=== PATIENT | female | born 1945 | race Caucasian/White ===

== ENCOUNTER 2016-03-17 12:33 | Day surgery (SDC) | payer MEDICARE, BC ==
[2016-03-17] MEDS ORDERED: MIDAZOLAM HCL 2MG/2ML VIAL IV ONE (14:00)
[2016-03-17] MEDS ORDERED: LIDOCAINE 2% MDV (20MG/ML) 20ML VIAL IV ONE (14:00)
[2016-03-17] MEDS ORDERED: PROPOFOL 10 MG/ML VIAL IV ONE (14:00)
--- NOTE | 2016-03-22 08:17 | Operative Note ---
DATE OF SURGERY: 03/17/2016. REFERRING PHYSICIAN: Gregory Brown D.O. PROCEDURE: Colonoscopy to the cecum with cold biopsy forceps polypectomy. INDICATION: A history of adenomatous polyps. The patient also has a family history of colon cancer (mother). She returns at this time for surveillance. ANESTHESIA: Intravenous sedation was administered by the Department of Anesthesiology and included Diprivan titrated to effect. PROCEDURE: Following informed consent from this alert individual, including a discussion of the risks and benefits of the procedure and an opportunity for the patient to ask questions, the patient was in the left lateral decubitus position. A digital rectal examination was performed. No abnormalities were noted. Following this, the Olympus PCF-180 video colonoscope was inserted into the rectum without resistance. The rectal mucosa had a normal appearance with normal folds and distensibility. The colonoscope was advanced up through the colon to the level of the cecum without much difficulty. Throughout the bowel, the mucosa appeared normal, folds were normal, and the bowel was fairly distensible. The cecum was defined by noting the appendiceal orifice and ileocecal valve. The colon preparation was good with some washing and suctioning. From the base of the cecum, the colonoscope was then withdrawn back through the bowel re-examining the mucosa upon withdrawal. There were a few scattered diverticula noted in the sigmoid colon and in the descending colon. Also noted in the sigmoid colon was a diminutive 3.0 mm polyp which was removed with biopsy forceps. No other mucosal changes were appreciated upon withdrawal. Retroflexion in the rectum was endoscopically normal. The instrument was straightened and withdrawn. The patient tolerated the procedure well and was returned to the recovery area in stable condition. IMPRESSION: 1. A 3.0 mm polyp removed from the sigmoid colon with biopsy forceps. 2. Diverticulosis. RECOMMENDATIONS: The patient was advised that further recommendations will be forthcoming pending the results of the pathology obtained today. Most likely follow up will be with surveillance colonoscopy in five years' time, again pending pathology. YANI DOHERTY D.O. Date Time JOB NUMBER: [id number] cc: Lamont Johnson
== END 2016-03-17 14:30 | disposition home or self-care (01) ==
LOC: HOP 12:33
PROVIDERS: ATTEND Internal Medicine Gastroenterology
DX: Z09 Encounter for follow-up examination after completed treatment for conditions other than malignant neoplasm (principal); Z80.0 Family history of malignant neoplasm of digestive organs; K63.5 Polyp of colon; K57.30 Diverticulosis of large intestine without perforation or abscess without bleeding; E78.00 Pure hypercholesterolemia, unspecified; E11.9 Type 2 diabetes mellitus without complications; Z79.84 Long term (current) use of oral hypoglycemic drugs; I25.10 Atherosclerotic heart disease of native coronary artery without angina pectoris

== ENCOUNTER 2016-03-18 15:14 | Emergency (ER) | payer MEDICARE, BC ==
[2016-03-18] MEDS ORDERED: NITROGLYCERIN 0.4MG SL TABLET #25 BTL SL ONE (16:02)
--- NOTE | 2016-03-18 16:06 | Emergency Department Record ---
History of Present Illness - General Stated Complaint: PAJIN IN LEFT ARM Time Seen by Provider: 03/18/16 16:01 Source: Patient Mode of Arrival: Ambulatory Limitations: No limitations - History of Present Illness Initial Comments: 70 yo female presents to ED with a CC of left arm pain that began approximately 5 days ago. Patient reports stopping her plavix 5 days ago for colonoscopy. Patient reports a history of DM, PVD, denies previous heart problems. Patient reports that her arm pain is not reproducible, but worsens with "moving around the house and cleaning with her right arm". MD Complaint: Other Onset/Timin -: Days(s) Onset: During exertion Pain Location: Other (LUE) Severity: Moderate Severity scale (1-10): 6 Quality: Aching Consistency: Intermittent Improves With: Nothing Worsens With: Exertion - Related Data Home Medications Medication Instructions Recorded Confirmed Last Taken Atorvastatin Calcium [Lipitor] 40 mg PO DAILY 11/07/13 11/27/14 11/27/14 Bupropion HCl [Wellbutrin] 300 mg PO BID 11/07/13 11/27/14 11/27/14 Citalopram Hydrobromide [Celexa] 40 mg PO DAILY 11/07/13 11/27/14 11/27/14 Metformin HCl [Metformin HCl] 2 tab PO BID 11/07/13 11/27/14 11/27/14 Clopidogrel Bisulfate [Plavix] 75 mg PO DAILY 11/27/14 11/27/14 11/27/14 Abernathy-3/Dha/Epa/Fish Oil [Fish Oil] 500 mg PO DAILY 11/27/14 11/27/14 11/27/14 Atorvastatin Calcium [Lipitor] 40 mg PO DAILY 03/18/16 03/18/16 Unknown Bisacodyl [Dulcolax] 5 mg PO NOW 03/18/16 03/18/16 Unknown Pantoprazole Sodium [Protonix] 1 tab PO DAILY 03/18/16 03/18/16 Unknown Previous Rx's Medication Instructions Recorded Albuterol Sulfate [Proair Hfa] 1 - 2 puff IH .EVERY 4-6 HOURS PRN 06/16/14 #1 inhaler Allergies Allergy/AdvReac Type Severity Reaction Status Date / Time aspirin Allergy Intermediate SWELLING Verified 02/28/16 13:54 OF THE FACE NSAIDS (Non-Steroidal Allergy Intermediate SWELLING Verified 02/28/16 13:54 Anti-Inflamma OF THE FACE Salicylates * Allergy Intermediate SWELLING Verified 02/28/16 13:54 OF THE FACE amoxicillin Allergy Unknown VOMITING Verified 11/27/14 20:33 ezetimibe [From Zetia] AdvReac Mild NAUSEA Verified 02/28/16 13:25 Sulfa (Sulfonamide AdvReac Mild HEADACHE Verified 02/28/16 13:54 Antibiotics) sulfamethoxazole AdvReac Mild HEADACHE Verified 02/28/16 13:54 [From Bactrim] trimethoprim [From Bactrim] AdvReac Mild HEADACHE Verified 02/28/16 13:54 Review of Systems Constitutional: Denies: Chills, Fever, Malaise, Night sweats Eyes: Denies: Eye discharge, Eye pain ENT: Denies: Congestion, Ear pain, Epistaxis Respiratory: Denies: Cough, Dyspnea Cardiovascular: Denies: Chest pain, Dyspnea on exertion, Palpitations Endocrine: Denies: Fatigue, Heat or cold intolerance Gastrointestinal: Denies: Abdominal pain, Nausea, Vomiting Genitourinary: Denies: Dysuria, Frequency, Hematuria, Incontinence Musculoskeletal: Reports: Arthralgia. Denies: Back pain, Gout, Joint swelling Skin: Denies: Bruising, Change in color Neurological: Denies: Abnormal gait, Confusion, Headache, Seizure Psychiatric: Denies: Anxiety Hematological/Lymphatic: Denies: Anemia, Blood Clots Past Medical History - SOCIAL HISTORY Smoking Status: Never smoker - RESPIRATORY Hx Respiratory Disorders: Yes Hx Bronchitis: Yes (not recently) Comment:: sinus issues cannot breathe out of the right side of nose - CARDIOVASCULAR Hx Cardio Disorders: Yes Hx Cardiac Cath: Yes (20+ years ago neg) Hx Chest Pain: Yes (last time 6 weeks, cardiac workup neg) Hx Coronary Artery Disease: Yes Comment:: High cholestrol - NEURO Hx Neuro Disorders: Yes Hx of Migraines: Yes Hx TIA: Yes (April or May/2015) - GI Hx GI Disorders: Yes Hx Reflux: Yes (worsened) Hx Hiatal Hernia: Yes Hx Nausea/Vomiting: Yes (improved recently) Hx of Polyps: Yes Comment:: difficulty in swallowing - Hx Genitourinary Disorders: Yes Hx Kidney Stones: Yes - ENDOCRINE Hx Endocrine Disorders: Yes Hx Thyroid Disease: Yes (Hx of hypo) - MUSCULOSKELETAL Hx Musculoskeletal Disorders: Yes - PSYCH Hx Psych Problems: Yes Hx Depression: Yes - HEMATOLOGY/ONCOLOGY Hx Hematology/Oncology Disorders: Yes Hx Anemia: Yes Family Medical History Hx Cancer: Mother Hx Diabetes: Father, Mother Hx Heart Disease: Father Physical Exam - General General Appearance: Alert, Oriented x3, Cooperative, Moderate distress Limitations: No limitations - Head Head exam: Atraumatic, Normocephalic, Normal inspection Head exam detail: negative: Abrasion, Contusion, Martinez's sign, General tenderness, Hematoma, Laceration - Eye Eye exam: Normal appearance. negative: Conjunctival injection, Periorbital swelling, Periorbital tenderness, Scleral icterus - ENT Ear exam: negative: Auricular hematoma, Auricular trauma Nasal Exam: negative: Active bleeding, Discharge, Dried blood, Foreign body Mouth exam: negative: Drooling, Laceration, Muffled voice, Tongue elevation - Neck Neck exam: Normal inspection. negative: Meningismus, Tenderness - Respiratory Respiratory exam: Normal lung sounds bilaterally. negative: Respiratory distress, Rhonchi, Stridor, Wheezes - Cardiovascular Cardiovascular Exam: Normal rhythm, Normal heart sounds, Tachycardia - GI/Abdominal GI/Abdominal exam: Soft. negative: Rebound, Rigid, Tenderness - Rectal Rectal exam: Deferred - exam: Deferred - Extremities Extremities exam: Normal inspection, Full ROM, Other (pain is not reproducible with palpation or movement of the left upper extremity). negative: Pedal edema , Tenderness - Back Back exam: Reports: Normal inspection. Denies: CVA tenderness (R), CVA tenderness (L) - Neurological Neurological exam: Alert, Normal gait, Oriented X3 - Psychiatric Psychiatric exam: Normal affect, Normal mood. negative: Anxious - Skin Skin exam: Normal color. negative: Abrasion Type of lesion: negative: abrasion Course - Reevaluation(s) Reevaluation #1: 03/18/16 16:18 EKG: Sinus tachycardia 118 Q waves III, AVF No acute ST-T wave changes Q waves are new from 06/02/14. Reevaluation #2: 03/18/16 18:06 CTA Chest: Nothing acute, small ground-glass appearance to the lungs bilaterally. Reevaluation #3: 03/18/16 18:12 Patient reassessed, pain has returned-Nitro qttp ordered to infuse. Dr. Prince sadler for consultation. Reevaluation #4: 03/18/16 18:17 Case was discussed with Dr. Morrison, will accept admission. Heparin drip ordered as well for possible unstable angina. patient and her SO updated on all results , and agree with the plan of care as discussed. Medical Decision Making - Lab Data Result diagrams: 03/18/16 16:10 03/18/16 16:09 Disposition Disposition: Transfer Clinical Impression: Atypical chest pain, PVD (peripheral vascular disease) Disposition: Acute Care Hospital Transfer Transfer To: [facility] Reason For Transfer: Unstable Angina Accepting Physician: Prince Time Discussed w/Accepting Physician: 18:15 Condition: (2) Stable
[2016-03-18 16:13] LABS: BASO % 0.4 % (0-6); EOS % 3.8 % (0-6); GRAN % 65.7 % (47-80); HEMATOCRIT 43.7 % (35.0-47.0); HEMOGLOBIN 14.6 gm/dl (11.6-16.0); LYMPH % 23.2 % (16-45); MEAN CELL VOLUME 93.8 fl (81-97); MEAN CORPUSCULAR HEMOGLOBIN 31.3 pg (27-33); MEAN CORPUSCULAR HGB CONC 33.4 g/dl (32-36); MEAN PLATELET VOLUME 9.6 fl (7.4-10.4); MONO % 6.9 % (0-9); PLATELET COUNT 178 K/uL (130-400); RED BLOOD COUNT 4.66 M/uL (3.80-5.40); RED CELL DISTRIBUTION WIDTH 13.4 % (11.5-14.5); WHITE BLOOD COUNT W/O DIFF 7.4 K/uL (4.2-12.2)
[2016-03-18 16:26] LABS: ALB/GLOB RATIO 1.4 (1.1-1.8); ALBUMIN 4.2 gm/dL (3.5-5.0); ALKALINE PHOSPHATASE 82 U/L (38-126); ALT/SGPT 30 U/L (9-52); ANION GAP 14.1 (7-16); AST/SGOT 23 U/L (14-36); BILIRUBIN,TOTAL 0.33 mg/dL (0.2-1.3); BLOOD UREA NITROGEN 11 mg/dL (7-17); CARBON DIOXIDE 24.9 mmol/L (22-30); CREATINE PHOSPHOKINASE 30 U/L (30-135); CREATININE 0.8 mg/dL (0.52-1.04); EST GLOMERULAR FILTRATION RATE > 60 ml/min; GLUCOSE,RANDOM 145 mg/dL (70-110); TOTAL PROTEIN 7.1 gm/dL (6.3-8.2)
[2016-03-18] MEDS ORDERED: ONDANSETRON HCL IV 4 MG/2 ML VIAL IVP ONE (16:33)
[2016-03-18 16:38] LABS: CKMB 0.3 ug/L (0-6)
[2016-03-18 16:39] LABS: TROPONIN I < 0.012 ng/mL (0.00-0.034)
[2016-03-18] MEDS ORDERED: NITROGLYCERIN/D5W 50 MG in DEXTROSE 5 % IN WATER 1 BAG IV SCH ×2 (18:15)
[2016-03-18] MEDS ORDERED: HEPARIN SODIUM/D5W 25,000 UNITS in DEXTROSE 5 % IN WATER 1 BAG IV SCH ×2 (18:15)
--- NOTE | 2016-03-22 13:02 | CT ANGIOGRAM REPORT ---
DATE: 03/18/2016 at 5:13 p.m. EXAM: CTA OF THE CHEST FOR PULMONARY EMBOLUS WITH POSTPROCESSING. HISTORY: Chest pain on the left; possible pulmonary embolus. TECHNIQUE: CTA of the chest was performed following the intravenous administration of 90 mL of Omnipaque 350 as the intravenous contrast. Postprocessing on an independent work station was performed with coronal and sagittal three-dimensional MIP series obtained. COMPARISON: No prior chest CT. Comparison is made with the two-view chest x- ray also from this afternoon at 03/18/2016 at 4:44 p.m. FINDINGS: No definite pulmonary embolus is identified. No thoracic aortic aneurysm or dissection is seen. No pleural or pericardial effusion evident. Some normal-sized mediastinal and hilar nodes are seen, but no definite mediastinal or hilar adenopathy identified. Small hiatal hernia. No pneumothorax evident. There is some mild ground glass infiltrate in the lungs, some of which is probably just due to respiratory blurring artifact. Some spurring in the spine. IMPRESSION: 1. NO DEFINITE PULMONARY EMBOLUS IDENTIFIED. 2. SOME MILD GROUND GLASS OPACITY IN BOTH LUNGS, AT LEAST SOME OF WHICH IS RELATED TO RESPIRATORY MOTION ARTIFACT. 3. NO PNEUMOTHORAX EVIDENT. JOB NUMBER: [id number] [facility]
--- NOTE | 2016-03-22 14:50 | RADIOLOGY REPORT ---
DATE: 03/18/2016 at 4:44 p.m. EXAM: TWO-VIEW CHEST. HISTORY: Chest pain and left arm pain. TECHNIQUE: PA and lateral views of the chest were obtained. COMPARISON: No prior chest x-ray. FINDINGS: Heart size is normal. Mild apical pleural thickening bilaterally. The lungs appear expanded with no acute infiltrate seen. No pleural effusion or pneumothorax is evident. Mild elevation of the right hemidiaphragm. IMPRESSION: MILD ELEVATION OF THE RIGHT HEMIDIAPHRAGM. NO ACUTE INFILTRATE IDENTIFIED. JOB NUMBER: [id number] [facility]
== END 2016-03-18 19:45 | disposition short-term general hospital (02) ==
LOC: ER 15:14
DX: R07.89 Other chest pain (principal); I73.9 Peripheral vascular disease, unspecified; I25.10 Atherosclerotic heart disease of native coronary artery without angina pectoris
CPT/HCPCS: 99285 ×2; 96365; 96366; 96375; 96368; 82550; 85025; 82553; 84484; 80053; 71020; 71275; 93005; 93010; Q9967; J2405

== ENCOUNTER 2017-04-13 08:01 | Day surgery (SDC) | payer MEDICARE, BC ==
[2017-04-13] MEDS ORDERED: PROPOFOL 10 MG/ML VIAL IV ONE (08:02)
[2017-04-13] MEDS ORDERED: FENTANYL PF 100MCG/2ML VIAL IV ONE (08:02)
--- NOTE | 2017-04-14 12:30 | Operative Note ---
DATE OF SURGERY: 04/13/2017 OPERATION: ESOPHAGOGASTRODUODENOSCOPY with multiple biopsies. INDICATION: Recurring lower chest pain with worsening esophageal reflux. Upper endoscopy is performed at this time for further evaluation. The patient has been taking Protonix 40 mg daily. ANESTHESIA: Intravenous sedation was administered by the department of anesthesiology and included Diprivan titrated to effect. PROCEDURE: Following informed consent from this alert individual, including a discussion of the risks and benefits of the procedure and an opportunity for the patient to ask questions, the patient was in the left lateral decubitus position. The Olympus UNA755 video endoscope was inserted into the esophagus without resistance. The proximal esophagus had a normal appearance with normal folds and distensibility. The mid esophagus likewise was free from changes. The distal esophageal segment demonstrated a large-bore Schatzki ring with some mild erythema at the ring itself. No ulcerations or erosions were noted. There was a small 2 cm hiatal hernia sac appreciated which was free from mucosal changes. The subdiaphragmatic stomach was then entered. The gastric fundus and pars media had a few small gastric fundal polyps. No ulcerations or erosions were seen. Within the antrum, there was linear erythema noted extending from the pylorus proximally along the greater curvature predominantly. The pylorus itself was symmetrical and patent. The duodenal bulb, sweep, and descending duodenum were examined in a serial fashion and found to be normal. The endoscope was then withdrawn back into the body of the stomach, where retroflexion accomplished following air insufflation failed to demonstrate any additional changes. The endoscope was then straightened. Multiple biopsies were taken from within the stomach to assess for Helicobacter pylori and check histology. The endoscope was then again withdrawn back through the esophagus and removed. The patient tolerated the procedure well and was returned to the recovery area in stable condition. IMPRESSION: 1. Linear antral gastritis, biopsies taken. 2. Large-bore Schatzki ring with some mild inflammation at the ring itself. 3. Small hiatal hernia. RECOMMENDATION: The patient will be maintained on Protonix 40 mg daily. I might add Carafate 2 g twice daily for some retained bile noted within the stomach. Perhaps this is contributing to her discomfort and/or reflux. She will follow up with her primary care physician, Gregory Brown, as scheduled and at the GI clinic as needed. As always, thank you for allowing me to participate in the care of your patient. CC: Gregory DE LA ROSA
== END 2017-04-13 09:58 | disposition home or self-care (01) ==
LOC: HOP 08:01
PROVIDERS: ATTEND Internal Medicine Gastroenterology
DX: K21.9 Gastro-esophageal reflux disease without esophagitis (principal); K29.60 Other gastritis without bleeding; K22.2 Esophageal obstruction; K44.9 Diaphragmatic hernia without obstruction or gangrene; E11.9 Type 2 diabetes mellitus without complications; Z79.84 Long term (current) use of oral hypoglycemic drugs; E78.00 Pure hypercholesterolemia, unspecified; E03.9 Hypothyroidism, unspecified
CPT/HCPCS: 43239; 00731; 88305; J3010

== ENCOUNTER 2017-08-24 09:16 | Day surgery (SDC) | payer MEDICARE, BC ==
[2017-08-24] MEDS ORDERED: PROPOFOL 10 MG/ML VIAL IV ONE (09:17)
[2017-08-24] MEDS ORDERED: LIDOCAINE 1% MDV (10MG/ML) 20ML VIAL SQ ONE (09:17)
--- NOTE | 2017-08-25 13:10 | Operative Note ---
Dictated by Dr. Jean Paul Escamilla DATE OF SURGERY: 08/24/2017 PROCEDURE: COLONOSCOPY with polypectomy and random biopsies. PREOPERATIVE DIAGNOSIS: Diarrhea, history of polyps, fecal positive occult. POSTOPERATIVE DIAGNOSIS: Diarrhea and colon polyp and diverticulosis. PHYSICIAN: Darío Daugherty DO ASSISTING PHYSICIAN: Jean Paul Escamilla DO ANESTHESIA: Moderate sedation performed by [place] anesthesia team. INDICATIONS: This is a 72-year-old female with recent history of acute onset diarrhea who notes about 6-8 bowel movements a day starting just about 6-8 weeks ago. Also had occult stools that were done that were positive. The patient does have a history of polyps last colonoscopy done 1 year ago. Due to suspicion of microscopic colitis, a colonoscopy was elected to be done. DESCRIPTION OF PROCEDURE: The patient was seen in the preop area where consent for anesthesia and the procedure was done, and risks and benefits of the procedure and anesthesia were discussed in detail. The patient was then brought back to the endoscopy unit where a timeout was performed confirming the patient's name, date of , and allergies and procedure to be done. The patient was then put on her left lateral decubitus position once blood pressure was drawn and patient was monitored with telemetry, pulse oximetry, and blood pressure management throughout. Once sedated, a rectal examination was done and an Olympus 180 colonoscope was then inserted into the rectum and advanced all the way to the cecum identified by the appendiceal orifice and ileocecal valve. The terminal ileum was visualized and approximately went in about 10 cm with no abnormalities appreciated. The scope was withdrawn. A 6 mm ascending colon polyp was appreciated and removed fully. The scope was then withdrawn with biopsies performed in the right and left colon. Once in the rectum, retroflexion was completed. The only other finding was diverticulosis noted in the sigmoid colon. The scope was removed. The patient tolerated the procedure very well and was brought to the postoperative area. Bleeding was minimal if any. FINDINGS: Diverticulosis, colon polyp, and random biopsies conducted due to history of diarrhea. RECOMMENDATIONS: We will await pathology. Recommend that the patient have a repeat colonoscopy likely in 5 years ago. With the polyp, there is high suspicion of microscopic colitis. Wound recommend followup within 4-6 weeks. As always, thank you for allowing me to participate in the care of your patient. CC: Dr. Gregory DE LA ROSA
== END 2017-08-24 12:32 | disposition home or self-care (01) ==
LOC: HOP 09:16
PROVIDERS: ATTEND Internal Medicine Gastroenterology
DX: Z09 Encounter for follow-up examination after completed treatment for conditions other than malignant neoplasm (principal); D12.2 Benign neoplasm of ascending colon; R19.7 Diarrhea, unspecified; K92.1 Melena; Z86.010 Personal history of colon polyps; K57.30 Diverticulosis of large intestine without perforation or abscess without bleeding; E11.9 Type 2 diabetes mellitus without complications; K21.9 Gastro-esophageal reflux disease without esophagitis; E78.00 Pure hypercholesterolemia, unspecified; E03.9 Hypothyroidism, unspecified

== ENCOUNTER 2017-10-29 07:28 | Day surgery (SDC) | payer MEDICARE, BC ==
[2017-10-29] MEDS ORDERED: TETRACAINE HCL 0.5% 15 ML OPTH BTL OPTH ONE (07:29)
[2017-10-29] MEDS ORDERED: NEOMYCIN/POLY./DEXAM OPTH OINT OPTH ONE (07:29)
[2017-10-29] MEDS ORDERED: LIDOCAINE 2% MDV (20MG/ML) 20ML VIAL IV ONE ×2 (07:29)
[2017-10-29] MEDS ORDERED: PROPOFOL 10 MG/ML VIAL IV ONE (07:29)
[2017-10-29] MEDS ORDERED: MIDAZOLAM HCL 2MG/2ML VIAL IV ONE (07:29)
[2017-10-29] MEDS ORDERED: CIPROFLOXACIN HCL 0.0015 GM, PHENYLEPHRINE HCL 0.05 GM, KETOROLAC TROMETHAMINE 0.000625 GM MC ONE ×5 (15:30)
--- NOTE | 2017-10-31 14:07 | Operative Note ---
DATE OF PROCEDURE: 10/29/17. PREOPERATIVE DIAGNOSIS: Nuclear sclerotic and cortical cataract, left eye. POSTOPERATIVE DIAGNOSIS: Nuclear sclerotic and cortical cataract, left eye. OPERATION: Phacoemulsification of cataractous lens with implantation of intraocular lens. LENS IMPLANT USED: Frank Model PCB00 + 20.5 diopters. COMPLICATIONS: None. PROCEDURE IN DETAIL: Following a retrobulbar and facial block, the patient was prepped and draped in the usual fashion for eye surgery. A lid speculum was placed in the left eye after which a 2.4 mm tunnel wound was placed at the temporal limbus and dissected into clear cornea. A paracentesis was placed at 2 o'clock hours to the left and right of the initial incision and the chamber deepened with Viscoelastic. The keratome was then used to enter the anterior chamber after which the continuous circular capsulorrhexis was accomplished without difficulty using a bent needle and a Utrata forceps. Hydrodissection and hydrodelineation of the lens was performed after which the nucleus of the lens was removed using the Phaco handpiece in the [id number] technique. The residual cortical material was irrigated and aspirated from the eye after which the bag and chamber were re-examined. The bag was re-inflated with Viscoelastic and the intraocular lens injected into the capsular bag where it centered well. The Viscoelastic was then copiously irrigated and aspirated from the eye after which the temporal tunnel wound and paracentesis were hydrated and the wounds were examined. They were noted to be watertight. The lid speculum was removed from the eye and the eye patched and shielded. The patient was transferred to the recovery room in satisfactory condition and given an appointment to be reexamined in the clinic later today or as directed by Dr. Coburn. JOB NUMBER: [id number] [facility]
== END 2017-10-29 10:00 | disposition home or self-care (01) ==
LOC: SUR 07:28
PROVIDERS: ATTEND Ophthalmology
DX: H25.12 Age-related nuclear cataract, left eye (principal); E11.9 Type 2 diabetes mellitus without complications; E78.00 Pure hypercholesterolemia, unspecified; E03.9 Hypothyroidism, unspecified; Z79.01 Long term (current) use of anticoagulants; K21.9 Gastro-esophageal reflux disease without esophagitis